=== PATIENT | female | born 1985 | race Two or more races ===

== ENCOUNTER 2018-02-20 09:02 | Inpatient (IN) | payer OTHER ==
[2018-02-20 10:03] VITALS: BMI 28.0
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
[2018-02-20] MEDS ORDERED: LOPERAMIDE HCL 2 MG CAPSULE PO PRN (10:34)
[2018-02-20] MEDS ORDERED: ACETAMINOPHEN 325 MG TABLET (FP) PO PRN (10:34)
[2018-02-20] MEDS ORDERED: MAGNESIUM HYDROX 2400MG/30ML ORAL SUSPENSION 30 ML CUP PO PRN (10:34)
[2018-02-20] MEDS ORDERED: guaiFENesin/D-METHORPHAN HB 10 ML UNIT-DOSE CUPS PO PRN (10:34)
[2018-02-20] MEDS ORDERED: IBUPROFEN 400 MG TABLET (FP) PO PRN (10:34)
[2018-02-20] MEDS ORDERED: MENTHOL/PHENOL 1 EACH UD MM PRN (10:34)
[2018-02-20] MEDS ORDERED: P-EPHED 60MG/TRIPROLIDI 2.5MG TABLET PO PRN (10:34)
[2018-02-20] MEDS ORDERED: MAGNESIUM CITRATE 300 ML BOTTLE PO PRN (10:34)
[2018-02-20] MEDS ORDERED: MAG HYDROX/AL HYDROX/SIMETH 30 ML UNIT-DOSE CUP PO PRN (10:34)
[2018-02-20] MEDS ORDERED: chlordiazePOXIDE HCL 25 MG CAPSULE PO ONE (11:15)
[2018-02-20] MEDS ORDERED: COLLOIDAL OATMEAL 1 BAR EACH TP PRN (11:22)
[2018-02-20] MEDS: chlordiazePOXIDE HCL 25 MG CAPSULE PO SCH ×2 (17:35→22:13)
[2018-02-20] MEDS ORDERED: MELATONIN 5 MG TABLETS PO PRN (22:00)
[2018-02-20] MEDS: THIAMINE HCL 100 MG TABLET (FP) PO SCH (22:13)
[2018-02-20 22:25] LABS: URINE APPEARANCE CLEAR; URINE BILIRUBIN NEGATIVE (<2.0 mg/dL); URINE COLOR YELLOW; URINE GLUCOSE (UA) NEGATIVE (NEGATIVE); URINE KETONE TRACE (NEGATIVE); URINE LEUK ESTERASE NEGATIVE (NEGATIVE); URINE NITRITE NEGATIVE (NEGATIVE); URINE PROTEIN NEGATIVE (NEGATIVE); URINE UROBILINOGEN NEGATIVE mg/dL (0.2-1.0)
[2018-02-20 22:36] LABS: EPI CELLS RARE /HPF (FEW); URINE BACTERIA RARE /hpf (NONE SEEN); URINE MUCUS FEW
[2018-02-21] MEDS: chlordiazePOXIDE HCL 25 MG CAPSULE PO SCH ×4 (05:30→22:11)
[2018-02-21] MEDS: AMMONIUM LACTATE 12% LOTION 225 GM BOTTLE TP PRN (06:08)
--- NOTE | 2018-02-21 08:55 | EKG ---
Test Reason : Blood Pressure : / mmHG Vent. Rate : 073 BPM Atrial Rate : 073 BPM P-R Int : 134 ms QRS Dur : 086 ms QT Int : 396 ms P-R-T Axes : 045 069 039 degrees QTc Int : 436 ms NORMAL SINUS RHYTHM NORMAL ECG NO PREVIOUS ECGS AVAILABLE Confirmed by LILA HINSON, HERO ([id number]) on 02/21/2018 8:55:13 AM Referred By: Jefe Bell Confirmed By:HERO SHARP MD
[2018-02-21] MEDS: PRENATAL VITAMINS W/ FOLIC ACID TABLET (FP) PO SCH (10:21)
[2018-02-21 10:22] LABS: HEMATOCRIT 37.4 % (32.4-45.2); HEMOGLOBIN 12.4 GM/dL (10.7-15.3); MCH 26.1 pg (25.7-33.7); MCHC 33.2 g/dl (32.0-36.0); MEAN CELL VOLUME 78.5 fl (80-96); MEAN PLT VOLUME 8.4 fl (7.5-11.1); PLATELET COUNT 278 K/MM3 (134-434); RBC 4.76 M/mm3 (3.60-5.2); RDW 17.4 % (11.6-15.6); WHITE BLOOD COUNT 4.5 K/mm3 (4.0-10.0)
[2018-02-21 10:31] LABS: CHLORIDE 105 mmol/L (98-107); POTASSIUM 4.5 mmol/L (3.5-5.1); SODIUM 137 mmol/L (136-145)
[2018-02-21 10:39] LABS: ALBUMIN 3.9 g/dl (3.4-5.0); ALK PHOS 53 U/L (45-117); ANION GAP 8 (8-16); BILIRUBIN,TOTAL 0.8 mg/dL (0.2-1.0); BLOOD UREA NITROGEN 9 mg/dL (7-18); CO2 24 mmol/L (21-32); GLUCOSE,RANDOM 85 mg/dL (74-106); SGOT/AST 23 U/L (15-37); SGPT/ALT 25 U/L (12-78); TOT PROT 8.3 g/dl (6.4-8.2)
--- NOTE | 2018-02-21 11:19 | PN ---
S CIWA - CIWA Score Nausea/Vomitin-Mild Nausea/No Vomiting Muscle Tremors: 4-Moderate,w/Arms Extend Anxiety: 3 Agitation: 3 Paroxysmal Sweats: 1-Minimal Palms Moist Orientation: 0-Oriented Tacttile Disturbances: 1-Very Mild Itch/Numbness Auditory Disturbances: 0-None Visual Disturbances: 0-None Headache: 0-None Present CIWA-Ar Total Score: 13 BHS Progress Note (SOAP) Subjective: sweat tremor gi distress trouble sleep at night restlessness anxiety Objective: 02/21/18 11:18 Vital Signs Temperature 98.1 F 02/21/18 10:50 Pulse Rate 104 H 02/21/18 10:50 Respiratory Rate 18 02/21/18 10:50 Blood Pressure 123/68 02/21/18 10:50 O2 Sat by Pulse Oximetry (%) Laboratory Last Values WBC 4.5 K/mm3 (4.0-10.0) 02/21/18 07:40 RBC 4.76 M/mm3 (3.60-5.2) 02/21/18 07:40 Hgb 12.4 GM/dL (10.7-15.3) 02/21/18 07:40 Hct 37.4 % (32.4-45.2) 02/21/18 07:40 MCV 78.5 fl (80-96) L 02/21/18 07:40 MCH 26.1 pg (25.7-33.7) 02/21/18 07:40 MCHC 33.2 g/dl (32.0-36.0) 02/21/18 07:40 RDW 17.4 % (11.6-15.6) H 02/21/18 07:40 Plt Count 278 K/MM3 (134-434) 02/21/18 07:40 MPV 8.4 fl (7.5-11.1) 02/21/18 07:40 Sodium 137 mmol/L (136-145) 02/21/18 07:40 Potassium 4.5 mmol/L (3.5-5.1) 02/21/18 07:40 Chloride 105 mmol/L (98-107) 02/21/18 07:40 Carbon Dioxide 24 mmol/L (21-32) 02/21/18 07:40 Anion Gap 8 (8-16) 02/21/18 07:40 BUN 9 mg/dL (7-18) 02/21/18 07:40 Creatinine 1.0 mg/dL (0.55-1.02) 02/21/18 07:40 Creat Clearance w eGFR > 60 (>60) 02/21/18 07:40 Random Glucose 85 mg/dL (74-106) 02/21/18 07:40 Calcium 9.0 mg/dL (8.5-10.1) 02/21/18 07:40 Total Bilirubin 0.8 mg/dL (0.2-1.0) 02/21/18 07:40 AST 23 U/L (15-37) 02/21/18 07:40 ALT 25 U/L (12-78) 02/21/18 07:40 Alkaline Phosphatase 53 U/L (45-117) 02/21/18 07:40 Total Protein 8.3 g/dl (6.4-8.2) H 02/21/18 07:40 Albumin 3.9 g/dl (3.4-5.0) 02/21/18 07:40 Urine Color Yellow 02/20/18 21:41 Urine Appearance Clear 02/20/18 21:41 Urine pH 5.0 (5.0-8.0) 02/20/18 21:41 Ur Specific [place] 1.016 (1.001-1.035) 02/20/18 21:41 Urine Protein Negative (NEGATIVE) 02/20/18 21:41 Urine Glucose (UA) Negative (NEGATIVE) 02/20/18 21:41 Urine Ketones Trace (NEGATIVE) H 02/20/18 21:41 Urine Blood 1+ (NEGATIVE) H 02/20/18 21:41 Urine Nitrite Negative (NEGATIVE) 02/20/18 21:41 Urine Bilirubin Negative (<2.0 mg/dL) 02/20/18 21:41 Urine Urobilinogen Negative mg/dL (0.2-1.0) 02/20/18 21:41 Ur Leukocyte Esterase Negative (NEGATIVE) 02/20/18 21:41 Urine WBC (Auto) <1 /hpf (3-5) 02/20/18 21:41 Urine RBC (Auto) <1 /hpf (0-3) 02/20/18 21:41 Ur Epithelial Cells Rare /HPF (FEW) 02/20/18 21:41 Urine Bacteria Rare /hpf (NONE SEEN) 02/20/18 21:41 Urine Mucus Few 02/20/18 21:41 lab noted Assessment: 02/21/18 11:19 alcohol withdrawal sx Plan: continue alcohol detox
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
[2018-02-21] MEDS: FLUoxetine HCL 20 MG CAPSULE (FP) PO SCH (13:03)
[2018-02-21] MEDS: chlordiazePOXIDE HCL 25 MG CAPSULE PO PRN (13:15)
[2018-02-21] MEDS: THIAMINE HCL 100 MG TABLET (FP) PO SCH (22:11)
[2018-02-22] MEDS: chlordiazePOXIDE HCL 25 MG CAPSULE PO SCH ×2 (06:25→10:04)
[2018-02-22] MEDS: PRENATAL VITAMINS W/ FOLIC ACID TABLET (FP) PO SCH (10:05)
[2018-02-22] MEDS: FLUoxetine HCL 20 MG CAPSULE (FP) PO SCH (10:05)
[2018-02-22] MEDS: chlordiazePOXIDE HCL 25 MG CAPSULE PO PRN (12:29)
--- NOTE | 2018-02-22 12:47 | PN ---
S CIWA - CIWA Score Nausea/Vomitin Muscle Tremors: 3 Anxiety: 3 Agitation: 2 Paroxysmal Sweats: 1-Minimal Palms Moist Orientation: 0-Oriented Tacttile Disturbances: 1-Very Mild Itch/Numbness Auditory Disturbances: 1-Very Mild Visual Disturbances: 0-None Headache: 2-Mild CIWA-Ar Total Score: 16 BHS Progress Note (SOAP) Subjective: alert,irritable,anxious,interrupted ,tremor Objective: 02/22/18 12:44 Vital Signs Temperature 98.2 F 02/22/18 09:56 Pulse Rate 102 H 02/22/18 09:56 Respiratory Rate 18 02/22/18 09:56 Blood Pressure 110/74 02/22/18 09:56 O2 Sat by Pulse Oximetry (%) ekg nsr,normal ecgqt/qtc 396/436 Laboratory Last Values WBC 4.5 K/mm3 (4.0-10.0) 02/21/18 07:40 RBC 4.76 M/mm3 (3.60-5.2) 02/21/18 07:40 Hgb 12.4 GM/dL (10.7-15.3) 02/21/18 07:40 Hct 37.4 % (32.4-45.2) 02/21/18 07:40 MCV 78.5 fl (80-96) L 02/21/18 07:40 MCH 26.1 pg (25.7-33.7) 02/21/18 07:40 MCHC 33.2 g/dl (32.0-36.0) 02/21/18 07:40 RDW 17.4 % (11.6-15.6) H 02/21/18 07:40 Plt Count 278 K/MM3 (134-434) 02/21/18 07:40 MPV 8.4 fl (7.5-11.1) 02/21/18 07:40 Sodium 137 mmol/L (136-145) 02/21/18 07:40 Potassium 4.5 mmol/L (3.5-5.1) 02/21/18 07:40 Chloride 105 mmol/L (98-107) 02/21/18 07:40 Carbon Dioxide 24 mmol/L (21-32) 02/21/18 07:40 Anion Gap 8 (8-16) 02/21/18 07:40 BUN 9 mg/dL (7-18) 02/21/18 07:40 Creatinine 1.0 mg/dL (0.55-1.02) 02/21/18 07:40 Creat Clearance w eGFR > 60 (>60) 02/21/18 07:40 Random Glucose 85 mg/dL (74-106) 02/21/18 07:40 Calcium 9.0 mg/dL (8.5-10.1) 02/21/18 07:40 Total Bilirubin 0.8 mg/dL (0.2-1.0) 02/21/18 07:40 AST 23 U/L (15-37) 02/21/18 07:40 ALT 25 U/L (12-78) 02/21/18 07:40 Alkaline Phosphatase 53 U/L (45-117) 02/21/18 07:40 Total Protein 8.3 g/dl (6.4-8.2) H 02/21/18 07:40 Albumin 3.9 g/dl (3.4-5.0) 02/21/18 07:40 Urine Color Yellow 02/20/18 21:41 Urine Appearance Clear 02/20/18 21:41 Urine pH 5.0 (5.0-8.0) 02/20/18 21:41 Ur Specific [place] 1.016 (1.001-1.035) 02/20/18 21:41 Urine Protein Negative (NEGATIVE) 02/20/18 21:41 Urine Glucose (UA) Negative (NEGATIVE) 02/20/18 21:41 Urine Ketones Trace (NEGATIVE) H 02/20/18 21:41 Urine Blood 1+ (NEGATIVE) H 02/20/18 21:41 Urine Nitrite Negative (NEGATIVE) 02/20/18 21:41 Urine Bilirubin Negative (<2.0 mg/dL) 02/20/18 21:41 Urine Urobilinogen Negative mg/dL (0.2-1.0) 02/20/18 21:41 Ur Leukocyte Esterase Negative (NEGATIVE) 02/20/18 21:41 Urine WBC (Auto) <1 /hpf (3-5) 02/20/18 21:41 Urine RBC (Auto) <1 /hpf (0-3) 02/20/18 21:41 Ur Epithelial Cells Rare /HPF (FEW) 02/20/18 21:41 Urine Bacteria Rare /hpf (NONE SEEN) 02/20/18 21:41 Urine Mucus Few 02/20/18 21:41 RPR Titer Nonreactive (NONREACTIVE) 02/21/18 07:40 HIV 1&2 Antibody Screen Negative 02/21/18 07:40 HIV P24 Antigen Negative 02/21/18 07:40 Assessment: 02/22/18 12:45 withdrawal symptom Plan: continue detox,psychiatric reevaluation for med
--- NOTE | 2018-02-22 14:06 | CONSULT ---
[facility] Psychiatric Consult - Data Date of interview: 02/22/18 Admission source: [facility] Identifying data: This is 32 yo woman here for first time detox for alcohol. Patient reports Alcohollism in a family, reports withdrawal symptoms and seeking for detox. Patient reports no psychiatric hospitalization history Substance Abuse History: - Smoking Cessation. Smoking history: Former smoker. Have you smoked in the past 12 months: No. Initiated information on smoking cessation: No. - Substance & Tx. History. Hx Alcohol Use: Yes. Hx Substance Use: No. Substance Use Type: Alcohol. Hx Substance Use Treatment: No. - Substances Abused. alcohol. Route: Oral. Frequency: Daily. Amount used: 12 glasses wine; one or two 4-lokos. Age of first use: 21. Date of Last Use: 02/19/18 Medical History: Eczema Psychiatric History: Patient reports no psychiatric hospitalization history, reports insomnia, reports taking prior to admission: Prozac 20mg poqd. Trazodone 100mg po qhs. Patient denies suicidal, homicidial history. Physical/Sexual Abuse/Trauma History: Denies Additional Comment: Prozac 20mg poqd. Trazodone 100mg po qhs Mental Status Exam - Mental Status Exam Alert and Oriented to: Time, Place, Person Cognitive Function: Fair Patient Appearance: Well Groomed Mood: Anxious Affect: Mood Congruent Patient Behavior: Cooperative Speech Pattern: Appropriate Voice Loudness: Normal Thought Process: Goal Oriented Thought Disorder: Being Controlled Hallucinations: Denies Suicidal Ideation: Denies Homicidal Ideation: Denies Insight/Judgement: Fair Sleep: Difficulty falling asleep Appetite: Weight gain Muscle strength/Tone: Normal Gait/Station: Normal Additional Comments: Prozac 20mg poqd. Trazodone 100mg po qhs Psychiatric Findings - Problem List ([place] 1, 2,3) (1) Alcohol induced insomnia Current Visit: Yes Status: Acute (2) Alcohol-induced mood disorder Current Visit: Yes Status: Acute (3) Chronic post-traumatic stress disorder (PTSD) Current Visit: Yes Status: Acute (4) Uncomplicated alcohol dependence Current Visit: Yes Status: Chronic - Initial Treatment Plan Initial Treatment Plan: Prozac 20mg poqd. Trazodone 100mg po qhs
[2018-02-22] MEDS: chlordiazePOXIDE 5 MG CAPSULE PO SCH ×2 (17:47→22:10)
[2018-02-22] MEDS: THIAMINE HCL 100 MG TABLET (FP) PO SCH (22:10)
[2018-02-22] MEDS: traZODone HCL 100 MG TABLET (FP) PO SCH (22:10)
[2018-02-23] MEDS: chlordiazePOXIDE 5 MG CAPSULE PO SCH ×2 (06:02→10:20)
[2018-02-23] MEDS: hydrOXYzine PAMOATE 25 MG CAPSULE (FP) PO PRN ×2 (06:12→13:58)
[2018-02-23] MEDS: FLUoxetine HCL 20 MG CAPSULE (FP) PO SCH (10:20)
[2018-02-23] MEDS: PRENATAL VITAMINS W/ FOLIC ACID TABLET (FP) PO SCH (10:20)
--- NOTE | 2018-02-23 15:24 | PN ---
S Progress Note (SOAP) Subjective: alert,irritable,anxious,interrupted sleep Objective: 02/23/18 15:23 Vital Signs Temperature 98.2 F 02/23/18 13:27 Pulse Rate 95 H 02/23/18 13:27 Respiratory Rate 18 02/23/18 13:27 Blood Pressure 116/70 02/23/18 13:27 O2 Sat by Pulse Oximetry (%) Assessment: 02/23/18 15:24 withdrawal symptom Plan: continue detox,discharge in am
[2018-02-23] MEDS: chlordiazePOXIDE HCL 10 MG CAPSULE PO SCH ×2 (17:01→22:19)
[2018-02-23] MEDS: traZODone HCL 100 MG TABLET (FP) PO SCH (22:19)
[2018-02-23] MEDS: THIAMINE HCL 100 MG TABLET (FP) PO SCH (22:19)
[2018-02-24] MEDS: chlordiazePOXIDE HCL 10 MG CAPSULE PO SCH ×2 (05:59→10:24)
[2018-02-24 09:34] VITALS: BP 103/70; PULSE 102; TEMP 98.1
[2018-02-24] MEDS: PRENATAL VITAMINS W/ FOLIC ACID TABLET (FP) PO SCH (10:24)
[2018-02-24] MEDS: FLUoxetine HCL 20 MG CAPSULE (FP) PO SCH (10:24)
[2018-02-24] MEDS: AMMONIUM LACTATE 12% LOTION 225 GM BOTTLE TP PRN (11:06)
--- NOTE | 2018-02-24 11:26 | PN ---
S Progress Note (SOAP) Subjective: alert,no complaint Objective: 02/24/18 11:24 Vital Signs Temperature 98.1 F 02/24/18 09:33 Pulse Rate 102 H 02/24/18 09:33 Respiratory Rate 18 02/24/18 09:33 Blood Pressure 103/70 02/24/18 09:33 O2 Sat by Pulse Oximetry (%) Assessment: 02/24/18 11:24 detox completed,no withdrawal symptom Plan: discharge today,follow up with after care program as arrangement
--- NOTE | 2018-02-24 11:29 | DS ---
[facility] Detox Discharge Summary Admission Date: 02/20/18 Discharge Date: 02/24/18 - History Present History: Alcohol Dependence Additional Comments: follow up with after care program as arrangement Pertinent Past History: ptsd depression - Physical Exam Results Vital Signs: Vital Signs Temperature 98.1 F 02/24/18 09:33 Pulse Rate 102 H 02/24/18 09:33 Respiratory Rate 18 02/24/18 09:33 Blood Pressure 103/70 02/24/18 09:33 O2 Sat by Pulse Oximetry (%) Pertinent Admission Physical Exam Findings: withdrawal signs and symptom Laboratory Last Values WBC 4.5 K/mm3 (4.0-10.0) 02/21/18 07:40 RBC 4.76 M/mm3 (3.60-5.2) 02/21/18 07:40 Hgb 12.4 GM/dL (10.7-15.3) 02/21/18 07:40 Hct 37.4 % (32.4-45.2) 02/21/18 07:40 MCV 78.5 fl (80-96) L 02/21/18 07:40 MCH 26.1 pg (25.7-33.7) 02/21/18 07:40 MCHC 33.2 g/dl (32.0-36.0) 02/21/18 07:40 RDW 17.4 % (11.6-15.6) H 02/21/18 07:40 Plt Count 278 K/MM3 (134-434) 02/21/18 07:40 MPV 8.4 fl (7.5-11.1) 02/21/18 07:40 Sodium 137 mmol/L (136-145) 02/21/18 07:40 Potassium 4.5 mmol/L (3.5-5.1) 02/21/18 07:40 Chloride 105 mmol/L (98-107) 02/21/18 07:40 Carbon Dioxide 24 mmol/L (21-32) 02/21/18 07:40 Anion Gap 8 (8-16) 02/21/18 07:40 BUN 9 mg/dL (7-18) 02/21/18 07:40 Creatinine 1.0 mg/dL (0.55-1.02) 02/21/18 07:40 Creat Clearance w eGFR > 60 (>60) 02/21/18 07:40 Random Glucose 85 mg/dL (74-106) 02/21/18 07:40 Calcium 9.0 mg/dL (8.5-10.1) 02/21/18 07:40 Total Bilirubin 0.8 mg/dL (0.2-1.0) 02/21/18 07:40 AST 23 U/L (15-37) 02/21/18 07:40 ALT 25 U/L (12-78) 02/21/18 07:40 Alkaline Phosphatase 53 U/L (45-117) 02/21/18 07:40 Total Protein 8.3 g/dl (6.4-8.2) H 02/21/18 07:40 Albumin 3.9 g/dl (3.4-5.0) 02/21/18 07:40 Urine Color Yellow 02/20/18 21:41 Urine Appearance Clear 02/20/18 21:41 Urine pH 5.0 (5.0-8.0) 02/20/18 21:41 Ur Specific [place] 1.016 (1.001-1.035) 02/20/18 21:41 Urine Protein Negative (NEGATIVE) 02/20/18 21:41 Urine Glucose (UA) Negative (NEGATIVE) 02/20/18 21:41 Urine Ketones Trace (NEGATIVE) H 02/20/18 21:41 Urine Blood 1+ (NEGATIVE) H 02/20/18 21:41 Urine Nitrite Negative (NEGATIVE) 02/20/18 21:41 Urine Bilirubin Negative (<2.0 mg/dL) 02/20/18 21:41 Urine Urobilinogen Negative mg/dL (0.2-1.0) 02/20/18 21:41 Ur Leukocyte Esterase Negative (NEGATIVE) 02/20/18 21:41 Urine WBC (Auto) <1 /hpf (3-5) 02/20/18 21:41 Urine RBC (Auto) <1 /hpf (0-3) 02/20/18 21:41 Ur Epithelial Cells Rare /HPF (FEW) 02/20/18 21:41 Urine Bacteria Rare /hpf (NONE SEEN) 02/20/18 21:41 Urine Mucus Few 02/20/18 21:41 RPR Titer Nonreactive (NONREACTIVE) 02/21/18 07:40 HIV 1&2 Antibody Screen Negative 02/21/18 07:40 HIV P24 Antigen Negative 02/21/18 07:40 Vital Signs Temperature 98.1 F 02/24/18 09:33 Pulse Rate 102 H 02/24/18 09:33 Respiratory Rate 18 02/24/18 09:33 Blood Pressure 103/70 02/24/18 09:33 O2 Sat by Pulse Oximetry (%) - Treatment Hospital Course: Detox Protocol Followed, Detoxed Safely, Responded well, Discharged Condition Good Patient has Accepted a Rehab Referral to: declined - Medication Discharge Medications: Ambulatory Orders Ammonium Lactate Cream [Lac-Hydrin 12% *Cream*] 1 applic TP BID 02/20/18 Fluoxetine HCl [Prozac -] 20 mg PO DAILY #30 capsule 02/22/18 traZODone HCL [Desyrel -] 100 mg PO HS #30 tablet 02/22/18 - Diagnosis (1) Uncomplicated alcohol dependence Current Visit: Yes Status: Chronic (2) Chronic post-traumatic stress disorder (PTSD) Current Visit: Yes Status: Acute (3) Depression Current Visit: Yes Status: Acute Qualifiers: Psychotic features: without psychotic features (4) Eczema Current Visit: Yes Status: Chronic Qualifiers: Eczema type: unspecified Qualified Code(s): L30.9 - Dermatitis, unspecified - AMA Did Patient Leave Against Medical Advice: No
== END 2018-02-24 13:52 | disposition home or self-care (01) | DRG 775 ==
LOC: YASAS 09:02 → Y6N 10:57
PROVIDERS: ADMIT Surgery; ATTEND Surgery
PROC: HZ2ZZZZ Detoxification Services for Substance Abuse Treatment (ICD-10-PCS; principal; 2018-02-20)
DX: F10.230 Alcohol dependence with withdrawal, uncomplicated (principal); F10.24 Alcohol dependence with alcohol-induced mood disorder; F10.282 Alcohol dependence with alcohol-induced sleep disorder; F43.10 Post-traumatic stress disorder, unspecified; F32.9 Major depressive disorder, single episode, unspecified; L30.9 Dermatitis, unspecified; Z87.891 Personal history of nicotine dependence; Z91.018 Allergy to other foods
CPT/HCPCS: 36415; 80053; 81003; 81015; 85027; 86593; 87389; 93005; 93010